=== PATIENT | male | born 1945 | race American Indian/Alaskan Native ===

== ENCOUNTER 2017-06-16 19:17 | Emergency (ER) | payer MEDICARE ==
[2017-06-16 19:44] VITALS: BP 152/97
== END 2017-06-16 21:50 | disposition left against medical advice (07) ==
LOC: ED 19:17
DX: R10.9 Unspecified abdominal pain (principal); Z53.21 Procedure and treatment not carried out due to patient leaving prior to being seen by health care provider

== ENCOUNTER 2018-07-16 16:01 | Emergency (ER) | payer MEDICARE ==
[2018-07-16 16:08] VITALS: BP 120/78
[2018-07-16] MEDS ORDERED: SOLU-Medrol IV ONE (18:17)
[2018-07-16] MEDS ORDERED: PROVENTIL IH ONE (18:17)
[2018-07-16] MEDS ORDERED: ATROVENT IH ONE (18:17)
--- NOTE | 2018-07-16 18:19 | Emergency Department Report ---
HPI - General Chief Complaint: Upper Respiratory Infection Time Seen by Provider: 07/16/18 16:54 - HPI HPI: 72-year-old -Congol[place] male presents to the emergency department with complaint of acute on chronic shortness of breath. Over the past few weeks the patient has developed shortness of breath, wheezing, a productive cough with whitish brown sputum. He denies any fever, chest pain, nausea, vomiting or diaphoresis. He also says that he has lost about 25 pounds over the past 8-9 months without trying. He has a past medical history of COPD/emphysema, as well as hypertension. He continues to be a tobacco smoker but denies any illicit dr ug use. He has been using some of his 's home oxygen and her inhalers without any relief. He does not have a primary care physician. His it teacher is Dr. Wolf. No recent travel or sick contacts at home. ED Past Medical Hx - Past Medical History Hx Hypertension: Yes Hx COPD: Yes - Surgical History Past Surgical History?: No - Social History Smoking Status: Current Every Day Smoker Substance Use Type: None - Medications Home Medications: Home Medications Medication Instructions Recorded Confirmed Last Taken Type Doxycycline [Vibramycin CAP] 100 mg PO BID #14 capsule 09/15/13 Unknown Rx Acetaminophen/Codeine [Tylenol #3] 1 tab PO Q8H PRN #21 tab 08/19/14 Unknown Rx Ibuprofen [Motrin 600 MG tab] 600 mg PO Q8H #30 tablet 08/19/14 Unknown Rx ALBUTEROL Inhaler (OR & NICU) 2 puff IH QID PRN #1 inhalation 07/16/18 Unknown Rx [ProAir HFA Inhaler] predniSONE [Deltasone] 50 mg PO QDAY #5 tab 07/16/18 Unknown Rx ED Review of Systems ROS: Stated complaint: GELY/CONGESTION Other details as noted in HPI Comment: All other systems reviewed and negative Constitutional: denies: chills, fever Eyes: denies: eye pain, vision change ENT: denies: ear pain, throat pain Respiratory: cough, shortness of breath, wheezing Cardiovascular: denies: palpitations, edema Endocrine: unexplained weight loss Gastrointestinal: denies: abdominal pain, vomiting Genitourinary: denies: dysuria, discharge Musculoskeletal: denies: back pain, arthralgia Skin: denies: rash, lesions Neurological: denies: headache, weakness Physical Exam - Physical Exam Vital Signs: Vital Signs 07/16/18 16:06 Temperature 98.1 F Pulse Rate 99 H Respiratory 17 Rate Blood Pressure 120/78 O2 Sat by Pulse 98 Oximetry Physical Exam: GENERAL: The patient is well-developed well-nourished. HEENT: Normocephalic. Atraumatic. Patient has moist mucous membranes. EYES: Extraocular motions are intact. Pupils are equal and reactive to light bilaterally. NECK: Supple. Trachea is midline. CHEST/LUNGS: Mild wheezing heard. No tachypnea or accessory muscle use. Occasional productive cough heard during examination. There is no respiratory distress noted. HEART/CARDIOVASCULAR: Regular. There is no tachycardia. There is no obvious murmur. ABDOMEN: Abdomen is soft, nontender. Patient has normal bowel sounds. There is no abdominal distention. SKIN: Skin is warm and dry. NEURO: The patient is awake, alert, and oriented. The patient is cooperative. The patient has no focal neurologic deficits. The patient has normal speech. MUSCULOSKELETAL: There is no tenderness or deformity. There is no evidence of acute injury. ED Course Vital Signs 07/16/18 16:06 Temperature 98.1 F Pulse Rate 99 H Respiratory 17 Rate Blood Pressure 120/78 O2 Sat by Pulse 98 Oximetry ED Medical Decision Making - Lab Data Result diagrams: 07/16/18 18:25 07/16/18 18:25 - EKG Data -: EKG Interpreted by Me EKG shows normal: sinus rhythm (sinus arrhythmia), axis, intervals, QRS comple xes (Q waves to the septal leads), ST-T waves (J-point elevation to the septal leads) Rate: normal - EKG Data When compared to previous EKG there are: previous EKG unavailable Interpretation: other (sinus arrhythmia, normal axis, normal intervals, Q waves to the septal leads with J-point elevation) - Radiology Data Radiology results: image reviewed interpreted by me: Chest x-ray does not show any pneumothorax, pleural effusion, pneumonia or obvious focal consolidation. - Medical Decision Making This patient presents with a complaint of some shortness of breath, wheezing and coughing has been going on for the past few weeks. On examination he has some mild wheezing and/or bronchospasm. He does not appear to be in any respiratory distress. A chest x-ray was done that does not show any pneumonia, pneumothorax, focal consolidation, effusions or any other acute process. His la bs have been unremarkable including a CBC, metabolic panel, d-dimer and troponin. He was given a nebulizer treatment and Solu-Medrol. The patient was reevaluated multiple times of multiple hours in both appears and feels improved. He will be discharged home with a 5 day course of steroids, and albuterol inhaler, and some referrals for primary care physicians and/or clinics in the area. He has been instructed to return to the emergency Department with any worsening of his symptoms or any acute distress. - Differential Diagnosis asthma, COPD, pneumonia, PE Critical Care Time: No Critical care attestation.: If time is entered above; I have spent that time in minutes in the direct care of this critically ill patient, excluding procedure time. ED Disposition Clinical Impression: COPD exacerbation, Tobacco use Disposition: TO HOME OR SELFCARE Is pt being admited?: No Condition: Stable Instructions: How to Stop Smoking (ED), Chronic Obstructive Pulmonary Disease (ED) Additional Instructions: Please follow up with a primary care physician in the next few days. Return to the emergency Department with any worsening of your symptoms or any acute distress. Please try and quit smoking. Prescriptions: predniSONE [Deltasone] 50 mg PO QDAY #5 tab ALBUTEROL Inhaler (OR & NICU) [ProAir HFA Inhaler] 2 puff IH QID PRN #1 inhalation PRN Reason: Shortness Of Breath Referrals: GALI HOLGUIN MD [Staff Physician] - 3-5 Days [facility] [Outside] - 3-5 Days Time of Disposition: 20:13
--- NOTE | 2018-07-16 18:21 | XRay Report ---
PROCEDURE: XR CHEST 1V AP TECHNIQUE: Single AP chest HISTORY: couugh COMPARISONS: FINDINGS: Cardiac and mediastinal contours are unremarkable. No focal pulmonary infiltrate identified. No pleur al fluid collection seen. Pulmonary vasculature is unremarkable. IMPRESSION: Negative single view chest. This document is electronically signed by Manolo Powers MD., July 16 2018 06:19:39 PM ET
[2018-07-16 18:45] LABS: Basophils # (Auto) 0.1 K/mm3 (0.0-0.1); Basophils % (Auto) 0.8 % (0.0-1.8); Eosinophils # (Auto) 0.3 K/mm3 (0.0-0.4); Eosinophils % (Auto) 2.4 % (0.0-4.3); Hematocrit 45.2 % (35.5-45.6); Hemoglobin 15.1 gm/dl (11.8-15.2); Lymphocytes # (Auto) 1.3 K/mm3 (1.2-5.4); Lymphocytes % (Auto) 11.6 % (13.4-35.0); Mean Corpuscular HGB Conc 33 % (32-34); Mean Corpuscular Volume 85 fl (84-94); Monocytes # (Auto) 1.2 K/mm3 (0.0-0.8); Platelet Count 251 K/mm3 (140-440); Red Blood Count 5.33 M/mm3 (3.65-5.03); Red Cell Distribution Width 13.5 % (13.2-15.2)
[2018-07-16 18:59] LABS: BUN/Creatinine Ratio 10; Blood Urea Nitrogen 10 mg/dL (9-20); Calcium 9.1 mg/dL (8.4-10.2); Hemolysis Index 7
== END 2018-07-16 20:56 | disposition home or self-care (01) ==
LOC: ED 16:01
DX: J44.1 Chronic obstructive pulmonary disease with (acute) exacerbation (principal); F17.210 Nicotine dependence, cigarettes, uncomplicated; I10 Essential (primary) hypertension
CPT/HCPCS: 36415; 71045; 80048; 84484; 85025; 85379; 93005; 93010; 94640; 96374; 99284; J2930

== ENCOUNTER 2019-09-25 13:09 | Inpatient (IN) | payer MEDICARE ==
[2019-09-25] MEDS ORDERED: FAMOTIDINE 20 MG TAB PO ONE (13:25)
[2019-09-25] MEDS ORDERED: NITROGLYCERIN 0.4 MG TAB SUBL SL PRN (13:25)
--- NOTE | 2019-09-25 13:32 | Emergency Department Report ---
ED Chest Pain HPI - General Chief Complaint: Chest Pain Stated Complaint: CJEST PAIN PUI?: No Time Seen by Provider: 09/25/19 13:19 Source: patient, EMS ( EMS documentation not available at time of chart dictation ), RN notes reviewed, old records reviewed Mode of arrival: Stretcher Limitations: No Limitations - History of Present Illness Initial Comments: Cardiology: Dr. Espino The patient is a 73-year-old gentleman with a past history of COPD. He is not known to myself previously. He presents to the ER with a complaint of central and left-sided chest pain, intermittent, with associated nausea, shortness of breath, and radiation to the left upper extremity. The patient denies headache, neck pain, abdominal pain, he is nauseous when he has the pain, denies irritative and obstructive urinary symptoms, And extremity weakness and or numbness. The patient was admitted to this hospital earlier on this month for chest pain. He had a nuclear stress test which was negative for acute findings, and seen and evaluated by cardiology. No recent erectile dysfunction medication utilization. No endorsement of cocaine, methamphetamine use. His chest pain is intermittent, and when it comes, he rates it at a 10 out of 10. Currently, has minimal discomfort at this time. He endorses compliance with his medications. He was reportedly at his outpatient controlled area checker office earlier on today, had not been seen yet by his physician, but had another episode of chest pain, and was thus emergently referred to the emergency room. Complaint: chest pain, other -: Sudden Pain Location: substernal, left chest Pain Radiation: LUE Severity: severe Severity scale (0 -10): 0 Quality: aching, heaviness, sharp Consistency: intermittent Improves With: rest Worsens With: nothing re: nausea, sense of impending doom Aspirin use within the Past 7 Days: (1) Yes - Related Data On Oral Contraceptives: No Home Medications Medication Instructions Recorded Confirmed Last Taken No Known Home Medications [No 09/25/19 09/25/19 Unknown Reported Home Medications] Allergies Allergy/AdvReac Type Severity Reaction Status Date / Time No Known Allergies Allergy Verified 07/16/18 16:02 Heart Score - HEART Score History: Highly suspicious EKG: Non-specific Age: > 65 Risk factors: 1-2 risk factors Troponin: < normal limit HEART Score: 6 - Critical Actions Critical Actions: 4-6 pts:12-16.6% risk of adverse cardiac event. Should be admitted ED Review of Systems ROS: Stated complaint: CJEST PAIN Other details as noted in HPI Constitutional: diaphoresis. denies: fever, malaise Eyes: denies: eye discharge Respiratory: shortness of breath. denies: cough Cardiovascular: chest pain Gastrointestinal: nausea. denies: hematemesis, melena, hematochezia Genitourinary: denies: dysuria Musculoskeletal: denies: back pain Skin: denies: lesions Neurological: denies: weakness Psychiatric: denies: depression Hematological/Lymphatic: denies: easy bleeding ED Past Medical Hx - Past Medical History Previous Medical History?: Yes Hx Hypertension: Yes Hx COPD: Yes (emphysema) - Surgical History Past Surgical History?: No - Social History Smoking Status: Current Every Day Smoker Substance Use Type: None - Medications Home Medications: Home Medications Medication Instructions Recorded Confirmed Last Taken Type No Known Home Medications [No 09/25/19 09/25/19 Unknown History Reported Home Medications] ED Physical Exam - General Limitations: No Limitations General appearance: alert, anxious - Head Head exam: Present: atraumatic, normocephalic - Eye Eye exam: Present: normal appearance, EOMI. Absent: nystagmus - ENT ENT exam: Present: normal exam, normal orophraynx, mucous membranes moist, normal external ear exam - Neck Neck exam: Present: normal inspection, full ROM. Absent: tenderness, meningismus - Respiratory Respiratory exam: Present: decreased breath sounds. Absent: respiratory distress, wheezes, rales, rhonchi, stridor - Cardiovascular Cardiovascular Exam: Present: regular rate, normal rhythm. Absent: bradycardia, tachycardia, irregular rhythm, normal heart sounds, systolic murmur, diastolic murmur, rubs, gallop - GI/Abdominal GI/Abdominal exam: Present: soft. Absent: distended, tenderness, guarding, rebound, rigid, pulsatile mass - Rectal Rectal exam: Present: deferred - Extremities Exam Extremities exam: Present: normal inspection, full ROM, other (2+ pulses noted in the bilateral upper and lower extremities. There is no palpable cord. negative Homans sign. Muscular compartments are soft. The pelvis is stable.). Absent: pedal edema, calf tenderness - Back Exam Back exam: Present: normal inspection, full ROM. Absent: tenderness, CVA tenderness (R), CVA tenderness (L), paraspinal tenderness, vertebral tenderness - Neurological Exam Neurological exam: Present: alert, other (No facial droop. Tongue midline. Extraocular movements intact bilaterally. Facial sensation intact to light touch in V1, V2, V3 distribution bilaterally. 5 and a 5 strength in 4 ext remities. Sensation intact to light touch in 4 extremities.). Absent: motor sensory deficit - Psychiatric Psychiatric exam: Present: anxious - Skin Skin exam: Present: warm, dry, intact, normal color. Absent: rash ED Course Vital Signs 09/25/19 09/25/19 09/25/19 13:11 13:16 13:24 Temperature 97.9 F Pulse Rate 66 59 L Respiratory 22 20 20 Rate Blood Pressure 122/83 O2 Sat by Pulse 99 99 Oximetry 09/25/19 09/25/19 09/25/19 13:30 13:45 14:00 Temperature Pulse Rate 69 68 61 Respiratory 18 16 15 Rate Blood Pressure 114/75 108/83 133/83 O2 Sat by Pulse 97 97 99 Oximetry 09/25/19 09/25/19 09/25/19 14:15 14:30 14:45 Temperature Pulse Rate 54 L 58 L 57 L Respiratory 18 18 14 Rate Blood Pressure 136/82 134/87 138/80 O2 Sat by Pulse 98 99 95 Oximetry 09/25/19 09/25/19 09/25/19 15:00 15:15 15:30 Temperature Pulse Rate 58 L 64 57 L Respiratory 21 16 17 Rate Blood Pressure 142/93 148/94 135/82 O2 Sat by Pulse 98 100 Oximetry 09/25/19 09/25/19 09/25/19 15:45 16:00 16:15 Temperature Pulse Rate 58 L 62 61 Respiratory 14 15 15 Rate Blood Pressure 135/81 134/86 133/79 O2 Sat by Pulse 100 99 97 Oximetry 09/25/19 09/25/19 09/25/19 16:30 16:45 17:00 Temperature Pulse Rate 72 59 L 62 Respiratory 14 21 16 Rate Blood Pressure 129/83 139/83 136/80 O2 Sat by Pulse 98 98 Oximetry 09/25/19 09/25/19 09/25/19 17:15 17:30 17:45 Temperature Pulse Rate 60 61 59 L Respiratory 25 H 19 15 Rate Blood Pressure 131/82 142/84 134/81 O2 Sat by Pulse 98 97 99 Oximetry 09/25/19 09/25/19 18:00 18:10 Temperature Pulse Rate Respiratory Rate Blood Pressure 144/85 144/85 O2 Sat by Pulse 79 L 98 Oximetry - Reevaluation(s) Reevaluation #1: 09/25/19 14:27 Hospital physician, Dr. Rubio, to admit patient to the medical service. Patient remains pain-free at this time. STACEY score - Stacey Score Age > 65: (1) Yes Aspirin use within the Past 7 Days: (1) Yes 3 or more CAD Risk Factors: (0) No 2 or more Angina events in past 24 hrs: (1) Yes Known CAD with more than 50% Stenosis: (0) No Elevated Cardiac Markers: (0) No ST Deviation Greater than 0.5mm: (0) No STACEY Score: 3 ED Medical Decision Making - Lab Data Result diagrams: 09/27/19 04:31 09/27/19 04:31 Vital Signs 09/25/19 09/25/19 09/25/19 13:11 13:16 13:24 Temperature 97.9 F Pulse Rate 66 59 L Respiratory 22 20 20 Rate Blood Pressure 122/83 O2 Sat by Pulse 99 99 Oximetry Lab Results 09/25/19 09/25/19 09/25/19 Range/Units 14:02 14:02 14:02 WBC 9.3 (4.5-11.0) K/mm3 RBC 5.48 H (3.65-5.03) M/mm3 Hgb 15.4 H (11.8-15.2) gm/dl Hct 47.5 H (35.5-45.6) % MCV 87 (84-94) fl MCH 28 (28-32) pg MCHC 33 (32-34) % RDW 13.6 (13.2-15.2) % Plt Count 210 (140-440) K/mm3 Lymph % (Auto) 11.1 L (13.4-35.0) % [place] % (Auto) 9.3 H (0.0-7.3) % Eos % (Auto) 3.6 (0.0-4.3) % Baso % (Auto) 0.9 (0.0-1.8) % Lymph # 1.0 L (1.2-5.4) K/mm3 [place] # 0.9 H (0.0-0.8) K/mm3 Eos # 0.3 (0.0-0.4) K/mm3 Baso # 0.1 (0.0-0.1) K/mm3 Seg Neutrophils % 75.1 H (40.0-70.0) % Seg Neutrophils # 7.0 (1.8-7.7) K/mm3 PT 12.8 (12.2-14.9) Sec. INR 0.95 (0.87-1.13) APTT 24.7 (24.2-36.6) Sec. Sodium 140 (137-145) mmol/L Potassium 4.8 (3.6-5.0) mmol/L Chloride 104.4 (98-107) mmol/L Carbon Dioxide 23 (22-30) mmol/L Anion Gap 17 mmol/L BUN 10 (9-20) mg/dL Creatinine 0.9 (0.8-1.5) mg/dL Estimated GFR > 60 ml/min BUN/Creatinine Ratio 11 % Glucose 94 (75-100) mg/dL Calcium 9.4 (8.4-10.2) mg/dL Troponin T < 0.010 (0.00-0.029) ng/mL - EKG Data -: EKG Interpreted by Sd EKG shows normal: sinus rhythm - EKG Data 09/25/19 13:32 The EKG today shows a sinus rhythm, with a normal axis, intervals appear to be unremarkable, there is persistent ST elevation in V2, without reciprocal changes, however, there are new onset biphasic T wave abnormalities V3, V4, V5. This EKG is abnormal. This EKG is not a STEMI. The EKG was also transmitted to our company secretary, Dr. Espino, who advises that this EKG does not meet STEMI criteria. - Radiology Data Radiology results: pending, report reviewed, image reviewed X-ray of the chest is negative for acute disease. - Medical Decision Making Differential diagnosis, including but not limited to: Unstable angina, acute coronary syndrome Assessment and plan: 73-year-old gentleman with a historically concerning chest pain, EKG changes. He is not having active pain at this time. His EKG was transmitted to his personal controlled area checker, Dr.C Espino, who also advises that the EKG does not meet criteria for emergency activation of the cardiac catheterization lab. However, his clinical history is very concerning for unstable angina. He has minimal pain at this time. Heparinization is recommended by the cardiology team, they advised that we withhold Plavix at this time. He will be admitted to the medical service for optimization, anticipate nothing by mouth after midnight, plan for cardiac catheterization tomorrow. Critical Care Time: Yes Critical care time in (mins) excluding proc time.: 35 Critical care attestation.: If time is entered above; I have spent that time in minutes in the direct care of this critically ill patient, excluding procedure time. ED Disposition Clinical Impression: Unstable angina, Acute electrocardiogram changes Disposition: OP ADMIT IP TO THIS HOSP Is pt being admited?: Yes Does the pt Need Aspirin: Yes Condition: Serious
[2019-09-25] MEDS ORDERED: HEPARIN 10,000 UNITS/10 ML VIAL IV ONE (13:35)
--- NOTE | 2019-09-25 13:42 | Consultation ---
History of Present Illness Consult date: 09/25/19 Consult reason: chest pain History of present illness: 73-yr old male with a history of hypertension, COPD and tobacco abuse. No cardiac history. Patient was recently hospitalized with atypical chest pain. A stress thallium test showed no ischemia and an echocardiogram showed a normal left ventricular systolic function. Today, patient went to our office for a routine visit following recent hospitalization. While in the office, patient complained of mid-sternal chest pain associated with left arm pain. An ECG done showed sinus rhythm with prominent Twave. His blood pressure remained stable. EMS was called and the patient was brought in for evaluation. Medications and Allergies Allergies Allergy/AdvReac Type Severity Reaction Status Date / Time No Known Allergies Allergy Verified 07/16/18 16:02 Home Medications Medication Instructions Recorded Confirmed Last Taken Type Aspirin EC [Halfprin EC] 81 mg PO QDAY #30 tablet. 09/16/19 Unknown Rx Nicotine [Habitrol] 14 mg TD DAILY #30 patch 09/16/19 Unknown Rx Pantoprazole [Protonix] 40 mg PO QDAY #30 tablet 09/16/19 Unknown Rx Active Meds: Active Medications Heparin Sodium/Sodium Chloride (Heparin/ 0.45% Nacl-25,000 Unit/500 Ml) 25,000 unit in 500 mls @ 16.47 mls/hr IV TITRATE DIANE; Protocol Nitroglycerin (Nitrostat) 0.4 mg SL .Q5MIN PRN PRN Reason: Chest Pain Physical Examination Vital Signs Temp Pulse Resp BP Pulse Ox 97.9 F 66 22 122/83 99 09/25/19 13:11 09/25/19 13:11 09/25/19 13:11 09/25/19 13:11 09/25/19 13:11 General appearance: no acute distress HEENT: Positive: PERRL Neck: Positive: trachea midline Cardiac: Positive: Reg Rate and Rhythm Assessment and Plan - Patient Problems (1) Acute electrocardiogram changes Status: Acute Plan to address problem: Start intravenous heparin gtt, nitrates, aspirin and metoprolol for chest pain. We will plan for a cardiac cath tomorrow morning. (2) Chest pain Status: Acute
[2019-09-25] MEDS ORDERED: METOPROLOL TARTRATE 25 MG TAB PO SCH (14:00)
[2019-09-25] MEDS ORDERED: HEPARIN/ 0.45% NACL DRIP 25,000 UNIT/500 ML BAG IV SCH (14:00)
--- NOTE | 2019-09-25 14:18 | XRay Report ---
CHEST 1 VIEW INDICATION / CLINICAL INFORMATION: Chest pain for 3 weeks. COMPARISON: 09/15/2019 FINDINGS: SUPPORT DEVICES: None. HEART / MEDIASTINUM: No significant abnormality. LUNGS / PLEURA: No focal infiltrate is seen. No pneumothorax. There is a calcified granuloma on the right. ADDITIONAL FINDINGS: No significant additional findings. IMPRESSION: 1. No acute findings. No significant change Signer Name: Romaine Franks MD Signed: 09/25/2019 2:14 PM Workstation Name: [id number]
[2019-09-25] MEDS: ASPIRIN 325 MG TAB PO SCH (14:21)
[2019-09-25 14:29] LABS: Basophils # (Auto) 0.1 K/mm3 (0.0-0.1); Basophils % (Auto) 0.9 % (0.0-1.8); Eosinophils # (Auto) 0.3 K/mm3 (0.0-0.4); Eosinophils % (Auto) 3.6 % (0.0-4.3); Hematocrit 47.5 % (35.5-45.6); Hemoglobin 15.4 gm/dl (11.8-15.2); Lymphocytes % (Auto) 11.1 % (13.4-35.0); Mean Corpuscular HGB Conc 33 % (32-34); Mean Corpuscular Volume 87 fl (84-94); Monocytes # (Auto) 0.9 K/mm3 (0.0-0.8); Monocytes % (Auto) 9.3 % (0.0-7.3); Platelet Count 210 K/mm3 (140-440); Red Blood Count 5.48 M/mm3 (3.65-5.03); Red Cell Distribution Width 13.6 % (13.2-15.2)
[2019-09-25 14:42] LABS: INR 0.95 (0.87-1.13)
[2019-09-25 14:43] LABS: Partial Thromboplastin Time 24.7 Sec. (24.2-36.6)
[2019-09-25 14:47] LABS: BUN/Creatinine Ratio 11; Blood Urea Nitrogen 10 mg/dL (9-20); Calcium 9.4 mg/dL (8.4-10.2); Hemolysis Index 62
[2019-09-25] MEDS ORDERED: ONDANSETRON 4 MG/2 ML INJ IV PRN (15:06)
--- NOTE | 2019-09-25 15:08 | History and Physical Report ---
History of Present Illness Chief complaint: My chest keeps hurting History of present illness: 73 YO Male with Nicotine Dependence,COPD, HTN, Malnutrition presents to ED for evaluation. Patient states that he has experienced pain in his chest over the past 2 weeks with acute acute onset of worsening pain in his chest over the past 1 day. Patient states that his pain began this morning shortly after awakening from sleep. Patient states that pain is 10 out of 10, substernal, radiates to the left chest, sharp, aching in nature, feels like a heaviness on his chest, associated with shortness of breath. Patient acknowledges shortness of breath, decreased exercise tolerance, dyspnea on exertion, as well as dyspnea at rest. EMS notified and upon arrival the patient was found to be in distress and subsequently transported to [facility] for further care and evaluation. Patient seen and evaluated in the emergency department. Lab and imaging studies reviewed. Patient found to have clinical findings consistent with unstable angina, diastolic CHF. Cardiology team consulted in the emergency department. Patient initiated on a heparin drip as well as chest pain protocol and admitted to telemetry service. Patient denies fever, chills, palpitations, productive cough, skin rash, recent ill contacts, prolonged travel/immobility, individual/family history of DVT/PE/bleeding/blood clotting disorders, or known exposure to COVID-19. Prior admission on 09/15/2019 reviewed. All medication listed at time of admission have been reconciled. Advanced care planning conducted in ED. Past History Past Medical History: diabetes, hypertension, other (See HPI) Past Surgical History: No surgical history, Other (Reviewed) Social history: , lives with family, smoking Family history: diabetes, hypertension Medications and Allergies Allergies Allergy/AdvReac Type Severity Reaction Status Date / Time No Known Allergies Allergy Verified 07/16/18 16:02 Home Medications Medication Instructions Recorded Confirmed Last Taken Type No Known Home Medications [No 09/25/19 09/25/19 Unknown History Reported Home Medications] Active Meds: Active Medications Acetaminophen (Tylenol) 650 mg PO Q4H PRN PRN Reason: Pain MILD(1-3)/Fever >100.5/[place] Aspirin (Aspirin) 325 mg PO QDAY [facility] Last Admin: 09/25/19 14:21 Dose: Not Given Documented by: Aspirin (Halfprin Ec) 81 mg PO QDAY [facility] Atorvastatin Calcium (Lipitor) 40 mg PO QHS [facility] Heparin Sodium/Sodium Chloride (Heparin/ 0.45% Nacl-25,000 Unit/500 Ml) 25,000 unit in 500 mls @ 15 mls/hr IV TITRATE [facility]; Protocol Last Admin: 09/25/19 14:07 Dose: 750 units/hr, 15 mls/hr Documented by: Metoprolol Tartrate (Metoprolol) 25 mg PO BID [facility] Nitroglycerin (Nitrostat) 0.4 mg SL .Q5MIN PRN PRN Reason: Chest Pain Nitroglycerin (Nitro-Bid 2%) 1 inch TP Q6HR [facility]; Protocol Ondansetron HCl (Zofran) 4 mg IV Q8H PRN PRN Reason: Nausea And Vomiting Sodium Chloride (Sodium Chloride Flush Syringe 10 Ml) 10 ml IV BID [facility] Sodium Chloride (Sodium Chloride Flush Syringe 10 Ml) 10 ml IV PRN PRN PRN Reason: LINE FLUSH Review of Systems Constitutional: no weight loss, no weight gain, no fever, no chills, no sweats Ears, nose, mouth and throat: no ear pain, no ear discharge, no tinnitis, no decreased hearing, no nose pain Cardiovascular: chest pain, dyspnea on exertion, decreased exercise tolerance, no palpitations, no rapid/irregular heart beat, no edema Respiratory: no cough, no cough with sputum, no excessive sputum, no hemoptysis, no dyspnea on exertion Gastrointestinal: no nausea, no vomiting, no diarrhea, no constipation, no hematemesis Genitourinary Male: no hematuria, no flank pain, no urinary frequency Rectal: no pain Musculoskeletal: no neck stiffness, no neck pain, no shooting arm pain, no low back pain, no shooting leg pain Integumentary: no rash, no redness, no sores, no jaundice Neurological: no head injury, no transient paralysis, no weakness, no parathesias, no numbness Psychiatric: no change in sleep habits, no insomnia, no change in libido, no suicidal ideation, no hallucinations Endocrine: no cold intolerance, no heat intolerance, no polyphagia, no polydipsia, no nocturia, no flushing, no weight change Hematologic/Lymphatic: no easy bruising, no easy bleeding, no lymphadenopathy, no lymphedema Allergic/Immunologic: no urticaria, no allergic rhinitis, no persistent infections, no anaphylaxis Exam - Constitutional Vitals: Temp Pulse Resp BP Pulse Ox 97.9 F 54 L 18 136/82 98 09/25/19 13:11 09/25/19 14:15 09/25/19 14:15 09/25/19 14:15 09/25/19 14:15 General appearance: Present: mild distress, cachectic - EENT Eyes: Present: PERRL ENT: hearing intact, clear oral mucosa - Neck Neck: Present: supple, normal ROM - Respiratory Respiratory effort: normal Respiratory: bilateral: CTA - Cardiovascular Heart Sounds: Present: S1 & S2. Absent: rub, click - Extremities Extremities: pulses symmetrical, No edema Peripheral Pulses: within normal limits - Abdominal General gastrointestinal: Present: soft, non-tender, non-distended, normal bowel sounds Male genitourinary: Present: normal - Integumentary Integumentary: Present: clear, warm, dry - Musculoskeletal Musculoskeletal: gait normal, strength equal bilaterally - Psychiatric Psychiatric: appropriate mood/affect, intact judgment & insight - Neurologic Neurologic: CNII-XII intact, moves all extremities HEART Score - HEART Score EKG: Non-specific Age: > 65 Risk factors: 1-2 risk factors Troponin: Troponin T < 0.010 ng/mL (0.00-0.029) 09/25/19 14:02 Troponin: < normal limit - Critical Actions Critical Actions: 4-6 pts:12-16.6% risk of adverse cardiac event. Should be admitted Results - Labs CBC & Chem 7: 09/25/19 14:02 09/25/19 14:02 Labs: Abnormal lab results 09/25/19 Range/Units 14:02 RBC 5.48 H (3.65-5.03) M/mm3 Hgb 15.4 H (11.8-15.2) gm/dl Hct 47.5 H (35.5-45.6) % Lymph % (Auto) 11.1 L (13.4-35.0) % [place] % (Auto) 9.3 H (0.0-7.3) % Lymph # 1.0 L (1.2-5.4) K/mm3 [place] # 0.9 H (0.0-0.8) K/mm3 Seg Neutrophils % 75.1 H (40.0-70.0) % Assessment and Plan - Patient Problems (1) Diastolic CHF Current Visit: Yes Status: Acute Qualifiers: Heart failure chronicity: acute Qualified Code(s): I50.31 - Acute diastolic (congestive) heart failure Plan to address problem: Strict I's/O, monitor urine output every shift, daily weight, echocardiogram reviewed, afterload reduction, blood pressure control, submental oxygen, supportive care. (2) Unstable angina Current Visit: Yes Status: Acute Plan to address problem: Cardiology consulted in ED, heparin drip, cardiac catheterization in a.m. as per cardiology team, serial cardiac enzymes, EKG, supplemental oxygen, morphine, nitro tabs, aspirin, supportive care, risk factor reduction, smoking cessation. (3) Malnutrition Current Visit: Yes Status: Acute Qualifiers: Protein-calorie malnutrition severity: moderate Plan to address problem: Encourage increased protein intake, dietary supplementation. (4) Nicotine dependence unspecified, with withdrawal Current Visit: Yes Status: Acute Qualifiers: Nicotine product type: cigarettes Qualified Code(s): F17.213 - Nicotine dependence, cigarettes, with withdrawal Plan to address problem: Smoking cessation counseling, supportive care, behavior change counseling, +15 minutes. (5) DVT prophylaxis Current Visit: No Status: Acute Plan to address problem: SCD to bilateral lower extremities while in bed, continue heparin drip. (6) Advance care planning Current Visit: Yes Status: Acute Plan to address problem: Disease education conducted, patient is full code, patient knowledges understanding and agreement with care plan, +30 minutes.
[2019-09-25] MEDS: NITROGLYCERIN 2% OINT 1 GM TP SCH (20:08)
[2019-09-25] MEDS: METOPROLOL TARTRATE 25 MG TAB PO SCH (22:28)
[2019-09-25] MEDS: ACETAMINOPHEN 325 MG TAB PO PRN (23:48)
[2019-09-26] MEDS: NITROGLYCERIN 2% OINT 1 GM TP SCH ×2 (00:15→06:11)
[2019-09-26 06:13] LABS: BUN/Creatinine Ratio 13; Blood Urea Nitrogen 10 mg/dL (9-20); Calcium 8.7 mg/dL (8.4-10.2); Hemolysis Index 12
[2019-09-26 06:22] LABS: INR 1.13 (0.87-1.13)
[2019-09-26] MEDS ORDERED: SODIUM CHLORIDE 0.9% 500 ML 500 ML ONE (07:17)
[2019-09-26] MEDS ORDERED: ASPIRIN EC 81 MG TAB PO ONE (07:17)
[2019-09-26] MEDS ORDERED: HEPARIN/NS 5000 UNIT/500ML 1,000 ML IR ONE (08:07)
[2019-09-26] MEDS ORDERED: VERAPAMIL 5 MG/2 ML INJ ONE ×2 (08:08→09:28)
[2019-09-26] MEDS ORDERED: NITROGLYCERIN SYRINGE 3 ML ONE (08:08)
[2019-09-26] MEDS: LIDOCAINE (2%) 20 MG/1 ML VIAL 20 ML MDV INFILTRATI ONE ×3 (08:43→08:58)
[2019-09-26] MEDS: MIDAZOLAM 2 MG/2 ML INJ ONE ×3 (08:43→09:11)
[2019-09-26] MEDS: fentaNYL 100 MCG/2 ML INJ ONE ×3 (08:43→09:06)
[2019-09-26] MEDS: HEPARIN 10,000 UNITS/10 ML VIAL ONE ×2 (09:07→09:15)
[2019-09-26] MEDS ORDERED: NITROGLYCERIN 0.4 MG TAB SUBL SL ONE (09:10)
[2019-09-26] MEDS ORDERED: TICAGRELOR 90 MG TAB ONE (09:47)
[2019-09-26] MEDS ORDERED: ALUM-MAG HYDROXIDE-SIMETHICONE 200-200-20MG/5ML ORAL LIQD 30 ML ONE (09:48)
[2019-09-26] MEDS ORDERED: ASPIRIN EC 81 MG TAB PO SCH (10:00)
--- NOTE | 2019-09-26 10:01 | Cardiac Catherization Report ---
CARDIAC CATHETERIZATION AND CORONARY ANGIOPLASTY REPORT REASON FOR PROCEDURE: The patient is a 73-year-old man who presented to the hospital with acute coronary syndrome, manifested by chest pain and biphasic T-wave changes in the anterior leads. He was treated with aggressive anti-ischemic medical therapy and referred for cardiac catheterization in an early invasive strategy. DESCRIPTION OF PROCEDURE: The patient was prepped and draped in a sterile fashion after informed consent. Right femoral artery was entered using Seldinger technique followed by placement of a 6-[place] sheath. Selective left and right coronary angiography was performed using #4 right and left Debby catheters. The right Debby was used for left ventricular angiography. The angiograms were reviewed. HEMODYNAMICS: Left ventricular end-diastolic pressure was 7. Ascending aortic pressure was 160/95. There was no significant pressure gradient on pullback across the aortic valve. CORONARY ANGIOGRAPHY: The left main coronary artery was free of significant disease. The left anterior descending artery contained a long, ulcerated, 95% stenosis of its proximal segment, associated with delayed STACEY 2 antegrade flow. The circumflex artery contained mild luminal irregularities. The right coronary artery was dominant and similarly contained mild luminal irregularities. Left ventricle was moderately to severely dilated, with severe left ventricular systolic dysfunction, ejection fraction 20-25%. CORONARY ANGIOPLASTY: Ad-hoc coronary intervention to the proximal LAD was performed. We exchanged for a #3.5 XB guiding catheter and advanced to the left coronary ostium. A 0.014 inch Whisper wire was successfully transitioned across the lesional segment in the very tortuous proximal LAD. Following wire placement, predilatation balloon angioplasty was performed using a #3.0 mm balloon catheter. We then deployed a 3.5 x 18 mm Resolute drug-eluting stent, covering the entire lesional segment. Following stent deployment, post-dilatation balloon angioplasty was successfully performed with an excellent angiographic result at the primary lesion and zero residual stenosis. At the conclusion, STACEY 3 flow was restored in the LAD. Procedure was well tolerated by the patient and there were no complications. The catheters and the wires were removed, sheath removed, and hemostasis achieved using an Angio-Seal device. The patient was returned to the post-procedure unit in stable condition. CONCLUSIONS: 1. Single vessel coronary artery disease with an ulcerated, greater than 95% stenosis of the proximal left anterior descending. 2. Ischemic cardiomyopathy, left ventricular ejection fraction 20-25%. 3. Successful angioplasty and stenting of the LAD stenosis, with deployment of a 3.5 mm drug-eluting stent, postdilated to a 4.4 mm diameter. 4. Sedation time, start 0856, end 0940. JOB# [id number] CA/NTS
--- NOTE | 2019-09-26 10:04 | Event Note ---
Date: 09/26/19 Cardiac cath completed with successful PCI of prox LAD. No complications.
[2019-09-26] MEDS ORDERED: SODIUM CHLORIDE 0.9% 1000 ML 1,000 ML IV SCH (10:15)
[2019-09-26] MEDS: ACETAMINOPHEN 325 MG TAB PO PRN (12:55)
--- NOTE | 2019-09-26 14:09 | Progress Note ---
Assessment and Plan Unstable angina due to coronary artery disease - s/p Cardiac cath completed with successful PCI of prox LAD this am - s/p heparin drip, now placed on aspirin Brilinta, high-dose statin and beta- aysha -We will follow further cardiology recommendations Diabetes mellitus type 2, continue consistent carb diet and SSI Hypertension, continue antihypertensive and adjust medications as needed Tobacco abuse, counseled for abstinence COPD, without exacerbation, nebs as needed Mild malnutrition, supplemental nutrients ordered DVT prophylaxis, Lovenox Brief history: 73-year-old male with a history of nicotine dependence, COPD, hypertension, malnutrition presented to the ER with complaints of chest pain. His cardiac enzymes in the ER was normal, he had a recent hospitalization and a stress test that time did not show any reversible ischemia. EKG showed prominent T waves, cardiology was consulted and and patient was placed on heparin drip. Status post cardiac cath today with PCI to proximal LAD. Physical exam: GENERAL: well-developed elderly -[place] male lying on bed appeared to be in no discomfort. HEENT: Normocephalic. Atraumatic. No conjunctival congestion or icterus. Patient has moist mucous membranes. NECK: Supple. Trachea midline. CHEST/LUNGS: Clear to auscultated bilaterally, breathing nonlabored. No wheezes crackles or rhonchi. HEART/CARDIOVASCULAR: Regular in rate and rhythm. S1 and S2 positive. ABDOMEN: Abdomen is soft, nontender. Patient has normal bowel sounds. SKIN: There is no rash. Warm and dry. NEURO: No focal motor deficit. Follows command. MUSCULOSKELETAL: No joint effusion or tenderness. EXTRIMITY: No edema, no cyanosis or clubbing. PSYCH: Cooperative. Subjective Date of service: 09/26/19 Interval history: Patient seen and examined. Medical records and medication list reviewed. No acute event overnight noted by the RN. Patient denies any chest pain or difficulty breathing. Status post cardiac cath today with PCI Discussed plan of care at bedside with patient. Objective - Constitutional Vitals: Vital Signs - 12hr 09/26/19 09/26/19 09/26/19 02:39 05:01 08:50 Temperature 97.8 F Pulse Rate 67 58 L Respiratory 20 Rate Blood Pressure 146/86 O2 Sat by Pulse 98 95 Oximetry 09/26/19 09/26/19 09/26/19 11:39 12:07 12:10 Temperature 97.5 F L Pulse Rate 58 L 62 Respiratory 18 Rate Blood Pressure 137/91 138/103 O2 Sat by Pulse 95 97 Oximetry 09/26/19 09/26/19 13:06 13:34 Temperature Pulse Rate 62 Respiratory Rate Blood Pressure 143/90 143/90 O2 Sat by Pulse Oximetry - Labs CBC & Chem 7: 09/27/19 04:31 09/27/19 04:31 Labs: Abnormal lab results 09/25/19 09/25/19 09/25/19 Range/Units 14:02 18:04 23:04 RBC 5.48 H (3.65-5.03) M/mm3 Hgb 15.4 H (11.8-15.2) gm/dl Hct 47.5 H (35.5-45.6) % Lymph % (Auto) 11.1 L (13.4-35.0) % [place] % (Auto) 9.3 H (0.0-7.3) % Lymph # 1.0 L (1.2-5.4) K/mm3 [place] # 0.9 H (0.0-0.8) K/mm3 Seg Neutrophils % 75.1 H (40.0-70.0) % Heparin Anti-Xa Level 0.78 H (0.3-0.7) U.I./ml POC Glucose 121 H (70-105) 09/25/19 09/26/19 09/26/19 Range/Units 23:18 02:11 04:19 RBC (3.65-5.03) M/mm3 Hgb (11.8-15.2) gm/dl Hct (35.5-45.6) % Lymph % (Auto) (13.4-35.0) % [place] % (Auto) (0.0-7.3) % Lymph # (1.2-5.4) K/mm3 [place] # (0.0-0.8) K/mm3 Seg Neutrophils % (40.0-70.0) % Heparin Anti-Xa Level 0.74 H 0.26 L (0.3-0.7) U.I./ml POC Glucose 109 H (70-105) HEART Score - HEART Score EKG: Non-specific Age: > 65 Risk factors: 1-2 risk factors Troponin: Troponin T 0.023 ng/mL (0.00-0.029) 09/25/19 18:04 Troponin: < normal limit - Critical Actions Critical Actions: 4-6 pts:12-16.6% risk of adverse cardiac event. Should be admitted
[2019-09-26] MEDS: IPRATROPIUM/ALBUTEROL SULFATE 3 ML AMPUL.NEB IH SCH ×2 (14:21→20:51)
[2019-09-26] MEDS: LISINOPRIL 5 MG TAB PO SCH (17:33)
[2019-09-26] MEDS: METOPROLOL TARTRATE 25 MG TAB PO SCH ×2 (17:33→21:32)
[2019-09-26] MEDS: ASPIRIN 325 MG TAB PO SCH (20:25)
[2019-09-26] MEDS: TICAGRELOR 90 MG TAB PO SCH (21:32)
[2019-09-26] MEDS: ENOXAPARIN 40 MG/0.4 ML INJ SUB-Q SCH (21:33)
[2019-09-27] MEDS: IPRATROPIUM/ALBUTEROL SULFATE 3 ML AMPUL.NEB IH SCH ×4 (02:02→20:49)
[2019-09-27 05:59] LABS: Basophils % (Auto) 0.4 % (0.0-1.8); Eosinophils # (Auto) 0.4 K/mm3 (0.0-0.4); Eosinophils % (Auto) 4.7 % (0.0-4.3); Hematocrit 45.1 % (35.5-45.6); Hemoglobin 14.6 gm/dl (11.8-15.2); Lymphocytes # (Auto) 1.1 K/mm3 (1.2-5.4); Lymphocytes % (Auto) 11.4 % (13.4-35.0); Mean Corpuscular HGB Conc 32 % (32-34); Mean Corpuscular Volume 87 fl (84-94); Monocytes # (Auto) 1.1 K/mm3 (0.0-0.8); Monocytes % (Auto) 11.5 % (0.0-7.3); Platelet Count 213 K/mm3 (140-440); Red Blood Count 5.19 M/mm3 (3.65-5.03); Red Cell Distribution Width 13.5 % (13.2-15.2)
[2019-09-27 06:06] LABS: Creatine Kinase MB 3.2 ng/mL (0.0-4.0)
[2019-09-27 06:09] LABS: BUN/Creatinine Ratio 15; Blood Urea Nitrogen 12 mg/dL (9-20); Calcium 8.6 mg/dL (8.4-10.2); Hemolysis Index 5
--- NOTE | 2019-09-27 09:07 | XRay Report ---
CHEST - 1 VIEW INDICATION: post pci COMPARISON: 09/25/2019 FINDINGS: SUPPORT DEVICES: None. HEART: Stable cardiomediastinal silhouette. LUNGS/PLEURA: Clear lungs. ADDITIONAL FINDINGS: None. IMPRESSION: Unchanged exam. Signer Name: Himanshu Hastings MD Signed: 09/27/2019 9:02 AM Workstation Name: [id number]
[2019-09-27] MEDS: LISINOPRIL 5 MG TAB PO SCH (09:40)
[2019-09-27] MEDS: METOPROLOL TARTRATE 25 MG TAB PO SCH ×2 (09:41→22:26)
[2019-09-27] MEDS: TICAGRELOR 90 MG TAB PO SCH ×2 (09:41→22:25)
[2019-09-27] MEDS: ASPIRIN 325 MG TAB PO SCH (09:42)
--- NOTE | 2019-09-27 10:43 | Progress Note ---
Assessment and Plan - Patient Problems (1) Unstable angina Current Visit: Yes Status: Acute Plan to address problem: Patient presented with unstable angina. EKG was biphasic anterior T waves. Cardiac catheterization demonstrated a severe stenosis of the proximal LAD, which was successfully treated with a 3.5 mm drug-eluting stent, postdilated to a 4.0 mm diameter. He is stable for cardiac discharge. Dual antiplatelet therapy with baby aspirin and Brilinta 90 mg twice daily. Continue other guideline directed medical therapy as outlined. Subjective Date of service: 09/27/19 Interval history: Patient is comfortable, looks and feels well, no further chest pain. He is in a sinus rhythm and hemodynamically stable. Objective Vital Signs Temp Pulse Pulse Resp Resp BP Pulse Ox 09/27/19 09:41 74 122/85 09/27/19 09:40 74 122/85 09/27/19 09:39 97 09/27/19 08:00 74 18 09/27/19 07:36 97.9 F 74 18 122/85 97 09/27/19 04:00 50 L 09/27/19 03:58 98.0 F 58 L 18 145/88 100 09/26/19 23:16 97.8 F 62 20 115/74 93 09/26/19 21:32 118/76 09/26/19 20:56 100 09/26/19 20:55 83 18 09/26/19 20:12 73 09/26/19 19:17 97.8 F 73 18 118/76 94 09/26/19 16:37 88 116/87 99 09/26/19 15:59 97.7 F 65 18 150/78 100 09/26/19 14:21 86 18 09/26/19 13:34 62 143/90 09/26/19 13:06 143/90 09/26/19 12:10 97.5 F L 62 18 138/103 97 09/26/19 12:07 58 L 95 09/26/19 11:39 137/91 - Physical Examination General: Appears Well, No Apparent Distress HEENT: Positive: PERRL Neck: Positive: trachea midline Cardiac: Positive: Reg Rate and Rhythm Lungs: Positive: Decreased Breath Sounds Neuro: Positive: Grossly Intact Abdomen: Positive: Soft Skin: Positive: Clear Extremities: Absent: edema - Labs and Meds Cardiac Enzymes 09/27/19 Range/Units 04:31 CK-MB (CK-2) 3.2 (0.0-4.0) ng/mL CBC 09/27/19 Range/Units 04:31 WBC 9.6 (4.5-11.0) K/mm3 RBC 5.19 H (3.65-5.03) M/mm3 Hgb 14.6 (11.8-15.2) gm/dl Hct 45.1 (35.5-45.6) % Plt Count 213 (140-440) K/mm3 Lymph # 1.1 L (1.2-5.4) K/mm3 [place] # 1.1 H (0.0-0.8) K/mm3 Eos # 0.4 (0.0-0.4) K/mm3 Baso # 0.0 (0.0-0.1) K/mm3 Comprehensive Metabolic Panel 09/27/19 Range/Units 04:31 Sodium 136 L (137-145) mmol/L Potassium 4.2 (3.6-5.0) mmol/L Chloride 100.9 (98-107) mmol/L Carbon Dioxide 25 (22-30) mmol/L BUN 12 (9-20) mg/dL Creatinine 0.8 (0.8-1.5) mg/dL Glucose 94 (75-100) mg/dL Calcium 8.6 (8.4-10.2) mg/dL
[2019-09-27] MEDS ORDERED: METOPROLOL TARTRATE 25 MG TAB PO SCH ×2 (12:07→22:00)
[2019-09-27] MEDS: ACETAMINOPHEN 325 MG TAB PO PRN ×3 (12:33→22:33)
--- NOTE | 2019-09-27 13:39 | Event Note ---
Date: 09/27/19 Patient's BP dropped to low 80s, he was started on isosorbide and lisinopril in addition to BB. will hold his BP meds now, cont to monitor.
--- NOTE | 2019-09-27 13:43 | Progress Note ---
Assessment and Plan Unstable angina due to coronary artery disease - s/p Cardiac cath completed with successful PCI of prox LAD 09/26/19 - s/p heparin drip, now placed on aspirin, Brilinta, high-dose statin and beta- aysha -We will follow further cardiology recommendations Diabetes mellitus type 2, continue consistent carb diet and SSI Hypertension, now hypotensive - placed on BB, ACI and isosorbide - BP dropped 80s - will hold BP meds for now New diagnosis of systolic CHFrEf 20-25% - cont strict ins/os, along with BB - patient appear compensated, follow cardiology recommendation Tobacco abuse, counseled for abstinence COPD, without exacerbation, nebs as needed Mild malnutrition, supplemental nutrients ordered DVT prophylaxis, Lovenox Disposition: Discharge hold today because of low blood pressure, systolic dropped to as low as 78. Will adjust antihypertensives, if clinically stable possible discharge tomorrow. Brief history: 73-year-old male with a history of nicotine dependence, COPD, hypertension, malnutrition presented to the ER with complaints of chest pain. His cardiac enzymes in the ER was normal, he had a recent hospitalization and a stress test that time did not show any reversible ischemia. EKG showed prominent T waves, cardiology was consulted and and patient was placed on heparin drip. Status post cardiac cath 09/25 with PCI to proximal LAD. Physical exam: GENERAL: well-developed elderly -[place] male lying on bed appeared to be in no discomfort. HEENT: Normocephalic. Atraumatic. No conjunctival congestion or icterus. Patient has moist mucous membranes. NECK: Supple. Trachea midline. CHEST/LUNGS: Clear to auscultated bilaterally, breathing nonlabored. No wheezes crackles or rhonchi. HEART/CARDIOVASCULAR: Regular in rate and rhythm. S1 and S2 positive. ABDOMEN: Abdomen is soft, nontender. Patient has normal bowel sounds. SKIN: There is no rash. Warm and dry. NEURO: No focal motor deficit. Follows command. MUSCULOSKELETAL: No joint effusion or tenderness. EXTRIMITY: No edema, no cyanosis or clubbing. PSYCH: Cooperative. Subjective Date of service: 09/27/19 Interval history: Patient seen and examined. Medical records and medication list reviewed. No acute event overnight noted by the RN. Patient denies any chest pain or difficulty breathing. Systolic blood pressure dropped below 80s this morning Patient complains of slight dizziness and lightheadedness Discussed plan of care at bedside with patient. Objective - Constitutional Vitals: Vital Signs - 12hr 09/27/19 09/27/19 09/27/19 03:58 04:00 07:36 Temperature 98.0 F 97.9 F Pulse Rate 58 L 50 L 74 Pulse Rate [ Bilateral Upper Lobe] Pulse Rate [ Lying] Pulse Rate [ Sitting] Pulse Rate [ Standing] Respiratory 18 18 Rate Respiratory Rate [Bilateral Upper Lobe] Blood Pressure 145/88 122/85 Blood Pressure [Lying] Blood Pressure [Sitting] Blood Pressure [Standing] O2 Sat by Pulse 100 97 Oximetry 09/27/19 09/27/19 09/27/19 08:00 09:39 09:40 Temperature Pulse Rate 74 Pulse Rate [ 74 Bilateral Upper Lobe] Pulse Rate [ Lying] Pulse Rate [ Sitting] Pulse Rate [ Standing] Respiratory Rate Respiratory 18 Rate [Bilateral Upper Lobe] Blood Pressure 122/85 Blood Pressure [Lying] Blood Pressure [Sitting] Blood Pressure [Standing] O2 Sat by Pulse 97 Oximetry 09/27/19 09/27/19 09:41 12:04 Temperature Pulse Rate 74 Pulse Rate [ Bilateral Upper Lobe] Pulse Rate [ 50 L Lying] Pulse Rate [ 74 Sitting] Pulse Rate [ 67 Standing] Respiratory Rate Respiratory Rate [Bilateral Upper Lobe] Blood Pressure 122/85 Blood Pressure 81/51 [Lying] Blood Pressure 87/49 [Sitting] Blood Pressure 75/50 [Standing] O2 Sat by Pulse Oximetry - Labs CBC & Chem 7: 09/27/19 04:31 09/27/19 04:31 Labs: Abnormal lab results 09/27/19 09/27/19 Range/Units 04:31 04:31 RBC 5.19 H (3.65-5.03) M/mm3 Lymph % (Auto) 11.4 L (13.4-35.0) % [place] % (Auto) 11.5 H (0.0-7.3) % Eos % (Auto) 4.7 H (0.0-4.3) % Lymph # 1.1 L (1.2-5.4) K/mm3 [place] # 1.1 H (0.0-0.8) K/mm3 Seg Neutrophils % 72.0 H (40.0-70.0) % Sodium 136 L (137-145) mmol/L HEART Score - HEART Score EKG: Non-specific Age: > 65 Risk factors: 1-2 risk factors Troponin: Troponin T < 0.010 ng/mL (0.00-0.029) 09/27/19 04:31 Troponin: < normal limit - Critical Actions Critical Actions: 4-6 pts:12-16.6% risk of adverse cardiac event. Should be admitted
[2019-09-27] MEDS: ENOXAPARIN 40 MG/0.4 ML INJ SUB-Q SCH (22:25)
[2019-09-27] MEDS ORDERED: CETIRIZINE 10 MG TAB PO ONE (23:00)
[2019-09-28] MEDS: IPRATROPIUM/ALBUTEROL SULFATE 3 ML AMPUL.NEB IH SCH ×3 (02:42→15:26)
[2019-09-28] MEDS ORDERED: KETOROLAC 30 MG/1 ML INJ IV ONE (06:43)
[2019-09-28] MEDS: ACETAMINOPHEN 325 MG TAB PO PRN (08:43)
[2019-09-28] MEDS ORDERED: LISINOPRIL 5 MG TAB PO SCH (10:00)
--- NOTE | 2019-09-28 11:06 | Progress Note ---
Assessment and Plan - Patient Problems (1) Unstable angina Current Visit: Yes Status: Acute Plan to address problem: Patient admitted with acute coronary syndrome, underwent cardiac catheterization with coronary stenting of a severe stenosis of the proximal LAD. Left ventricular angiography revealed an underlying ischemic cardiomyopathy. Patient is stable for discharge on medical therapy, including dual oral antiplatelet therapy with aspirin 81 mg and Brilinta 90 mg twice daily, in addition to reduced doses of his JULIEN and beta-aysha, in addition to guideline directed doses of statin. The isosorbide can be discontinued due to concerns regarding low blood pressure. Follow-up in my office within 1 week. Subjective Date of service: 09/28/19 Interval history: Patient is comfortable, no chest pain or shortness of breath. His anticipated discharge yesterday was held due to the finding of low blood pressure. As a consequence, his JULIEN inhibitor and beta-aysha were held and dose is reduced. This morning, his systolic blood pressure is 117. Objective Vital Signs Temp Pulse Pulse Pulse Pulse Pulse Resp 09/28/19 07:58 09/28/19 07:09 20 09/28/19 04:56 98.0 F 65 18 09/27/19 23:33 18 09/27/19 23:24 98.0 F 72 18 09/27/19 22:33 18 09/27/19 22:26 56 L 09/27/19 22:00 20 09/27/19 20:51 09/27/19 20:50 67 09/27/19 20:04 98.0 F 56 L 18 09/27/19 20:00 72 09/27/19 15:25 97.9 F 65 18 09/27/19 14:30 77 09/27/19 12:04 50 L 74 67 09/27/19 11:31 97.9 F 95 H 18 09/27/19 11:27 97.9 F 81 18 Resp BP BP BP BP Pulse Ox 09/28/19 07:58 98 09/28/19 07:09 09/28/19 04:56 118/70 98 09/27/19 23:33 09/27/19 23:24 107/74 97 09/27/19 22:33 09/27/19 22:26 105/68 09/27/19 22:00 100 09/27/19 20:51 99 09/27/19 20:50 18 09/27/19 20:04 105/68 98 09/27/19 20:00 09/27/19 15:25 96/53 100 09/27/19 14:30 18 09/27/19 12:04 81/51 87/49 75/50 09/27/19 11:31 75/50 92 09/27/19 11:27 87/49 95 - Physical Examination General: Appears Well, No Apparent Distress HEENT: Positive: PERRL Neck: Positive: trachea midline Cardiac: Positive: Reg Rate and Rhythm Lungs: Positive: Decreased Breath Sounds Neuro: Positive: Grossly Intact Abdomen: Positive: Soft Skin: Positive: Clear Extremities: Absent: edema
[2019-09-28] MEDS: TICAGRELOR 90 MG TAB PO SCH (11:07)
[2019-09-28] MEDS: ASPIRIN 325 MG TAB PO SCH (11:07)
[2019-09-28] MEDS: METOPROLOL TARTRATE 25 MG TAB PO SCH (11:08)
--- NOTE | 2019-09-28 11:22 | Discharge Summary ---
Providers - Providers Date of Admission: 09/25/19 15:06 Date of discharge: 09/28/19 Attending physician: SERGIO GUZMAN 09/25/19 13:25 Consult to Physician [CONS] Urgent Comment: Consulting Provider: OSITO ZULUAGA Physician Instructions: Reason For Exam: cp ekg changes 09/26/19 Consult to Cardiac Rehabilitation [CONS] Routine Reason For Exam: post pci Hospitalization Condition: Serious Pertinent studies: Chest x-ray, cardiac cath Hospital course: 73-year-old male with a history of nicotine dependence, COPD, hypertension, ma lnutrition presented to the ER with complaints of chest pain. His cardiac enzymes in the ER was normal, he had a recent hospitalization and a stress test that time did not show any reversible ischemia. EKG showed prominent T waves, cardiology was consulted and and patient was placed on heparin drip. Status post cardiac cath on 09/26/19 with PCI to proximal LAD. Patient was placed on dual antiplatelet therapy with aspirin and Brilinta along with how to use statin beta-aysha and ACEI. He also noted to have ejection fraction of 20 to 25% on cardiac cath, but he appears to be compensated. Cardiology recommended to continue current medications and further follow-up as an outpatient. During this hospitalization patient was briefly noted to be hypotensive which is thought to be medication induced, his antihypertensives medications were adjusted blood pressure was stabilized and he was discharged home in stable condition with outpatient follow-up. Discharge diagnosis and Mx: Unstable angina due to coronary artery disease - s/p Cardiac cath completed with successful PCI of prox LAD 09/26/19 - s/p heparin drip, now placed on aspirin, Brilinta, high-dose statin, beta- aysha and ACEI Diabetes mellitus type 2, continue consistent carb diet and home meds Hypertension, - placed on low dose BB, ACEI. Hypertension, likely medication induced, resolved -Stopped isosorbide and reduced dose for beta-aysha and ACEI New diagnosis of systolic CHFrEf 20-25% -Managed with strict ins/os, along with low-dose BB and ACEI - patient appear compensated, will follow up with cardiology as outpatient Tobacco abuse, counseled for abstinence COPD, without exacerbation, nebs as needed Mild malnutrition, supplemental nutrients ordered DVT prophylaxis, Lovenox Physical exam: GENERAL: well-developed elderly -[place] male lying on bed appeared to be in no discomfort. HEENT: Normocephalic. Atraumatic. No conjunctival congestion or icterus. Patient has moist mucous membranes. NECK: Supple. Trachea midline. CHEST/LUNGS: Clear to auscultated bilaterally, breathing nonlabored. No wheezes crackles or rhonchi. HEART/CARDIOVASCULAR: Regular in rate and rhythm. S1 and S2 positive. ABDOMEN: Abdomen is soft, nontender. Patient has normal bowel sounds. SKIN: There is no rash. Warm and dry. NEURO: No focal motor deficit. Follows command. MUSCULOSKELETAL: No joint effusion or tenderness. EXTRIMITY: No edema, no cyanosis or clubbing. PSYCH: Cooperative. Disposition: DC-01 TO HOME OR SELFCARE Time spent for discharge: 34 minutes Core Measure Documentation - Palliative Care Palliative Care/ Comfort Measures: Not Applicable - Core Measures Any of the following diagnoses?: acute [place], heart failure - Acute [place] Discharge Requirements Aspirin at discharge: Yes JULIEN/ARB for LVSD if EF <40%: Yes Beta aysha at discharge: Yes Statin for LDL = or >100 mg/dl on DC: Yes - Heart Failure Discharge Requirements JULIEN/ARB for LVSD if EF <40%: Yes Beta aysha at discharge: Yes Exam - Constitutional Vitals: Temp Pulse Resp BP Pulse Ox 98.0 F 65 20 118/70 98 09/28/19 04:56 09/28/19 04:56 09/28/19 07:09 09/28/19 04:56 09/28/19 07:58 Plan Activity: fall precautions Weight Bearing Status: Non-Weight Bearing Diet: low fat, low salt, diabetic Special Instructions: restrict fluid intake to (1.2L daily ), record daily BP diary, record blood sugar diary Follow up with: MIGUEL LICONA [Other] - 3-5 Days OSITO ZULUAGA MD [Staff Physician] - 7 Days Prescriptions: AtorvaSTATin [Lipitor] 40 mg PO QHS #30 tablet Aspirin 81 mg PO QDAY #30 tablet Ticagrelor [Brilinta] 90 mg PO BID #60 tablet Metoprolol [Lopressor TAB] 12.5 mg PO BID #60 tablet lisinopriL [Zestril TAB] 2.5 mg PO QDAY #30 tablet
[2019-09-28 17:16] VITALS: BP 122/71
== END 2019-09-28 18:06 | disposition home or self-care (01) | DRG 246 ==
LOC: ED 13:09 → 4A 15:06
PROVIDERS: ADMIT Internal Medicine; ATTEND Internal Medicine
PROC: 027034Z Dilation of Coronary Artery, One Artery with Drug-eluting Intraluminal Device, Percutaneous Approach (ICD-10-PCS; principal; 2019-09-26)
PROC: 4A023N7 Measurement of Cardiac Sampling and Pressure, Left Heart, Percutaneous Approach (ICD-10-PCS; 2019-09-26)
PROC: B2111ZZ Fluoroscopy of Multiple Coronary Arteries using Low Osmolar Contrast (ICD-10-PCS; 2019-09-26)
PROC: B2151ZZ Fluoroscopy of Left Heart using Low Osmolar Contrast (ICD-10-PCS; 2019-09-26)
DX: I25.110 Atherosclerotic heart disease of native coronary artery with unstable angina pectoris (principal); I50.41 Acute combined systolic (congestive) and diastolic (congestive) heart failure; E44.0 Moderate protein-calorie malnutrition; Z68.1 Body mass index [BMI] 19.9 or less, adult; F17.213 Nicotine dependence, cigarettes, with withdrawal; I11.0 Hypertensive heart disease with heart failure; E11.9 Type 2 diabetes mellitus without complications; I25.5 Ischemic cardiomyopathy; J43.9 Emphysema, unspecified; Z71.6 Tobacco abuse counseling; Z82.49 Family history of ischemic heart disease and other diseases of the circulatory system; Z83.3 Family history of diabetes mellitus
CPT/HCPCS: 36415; 71045; 80048; 82550; 82553; 82962; 83735; 84484; 85025; 85347; 85520; 85610; 85730; 92928; 93005; 93458; 94640; 94760; 99406; G0378; A9270-GY; C1725; C1760; C1769; C1874; C1887; C1894; C9600; J1644; J1650; J1885; J2250; J3010; J7040; Q9967

== ENCOUNTER 2021-11-05 17:48 | Emergency (ER) | payer MEDICARE ==
[2021-11-05 17:54] VITALS: BP 144/93
[2021-11-05] MEDS ORDERED: ASPIRIN 325 MG TAB PO ONE (17:54)
--- NOTE | 2021-11-05 18:36 | XRay Report ---
CHEST 2 VIEWS INDICATION / CLINICAL INFORMATION: chest pain. COMPARISON: 04/23/2021 FINDINGS: SUPPORT DEVICES: None. HEART / MEDIASTINUM: No significant abnormality. LUNGS / PLEURA: Advanced COPD/emphysema, unchanged No significant pulmonary or pleural abnormality. N o pneumothorax. ADDITIONAL FINDINGS: No significant additional findings. IMPRESSION: 1. No acute findings. 2. Chronic advanced COPD/emphysema Signer Name: Mansoor Vora MD Signed: 11/05/2021 6:32 PM Workstation Name: [id number]
[2021-11-05 19:30] LABS: Basophils # (Auto) 0.5 K/mm3 (0.0-0.1); Basophils % (Auto) 2.6 % (0.0-1.8); Eosinophils # (Auto) 0.1 K/mm3 (0.0-0.4); Eosinophils % (Auto) 0.6 % (0.0-4.3); Hematocrit 49.2 % (35.5-45.6); Hemoglobin 15.5 gm/dl (11.8-15.2); Lymphocytes # (Auto) 0.5 K/mm3 (1.2-5.4); Lymphocytes % (Auto) 2.6 % (13.4-35.0); Mean Corpuscular HGB Conc 32 % (32-34); Mean Corpuscular Volume 86 fl (84-94); Monocytes # (Auto) 1.4 K/mm3 (0.0-0.8); Monocytes % (Auto) 7.7 % (0.0-7.3); Platelet Count 207 K/mm3 (140-440); Red Cell Distribution Width 14.1 % (13.2-15.2)
[2021-11-05 19:45] LABS: Alanine Aminotransferase 23 units/L (7-56); Blood Urea Nitrogen 9 mg/dL (9-20); Calcium 9.2 mg/dL (8.4-10.2); Hemolysis Index 7
[2021-11-05 19:51] LABS: BUN/Creatinine Ratio 15
--- NOTE | 2021-11-07 10:01 | Electrocardiograph Report ---
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
== END 2021-11-06 03:50 | disposition home or self-care (01) ==
LOC: ED 17:48
DX: R06.02 Shortness of breath (principal); Z53.21 Procedure and treatment not carried out due to patient leaving prior to being seen by health care provider
CPT/HCPCS: 36415; 71046; 80053; 84484; 85025; 93005

== ENCOUNTER 2021-11-08 19:52 | Emergency (ER) | payer SELFPAY ==
[2021-11-08 22:16] VITALS: BP 129/95
--- NOTE | 2021-11-08 22:59 | XRay Report ---
CHEST 2 VIEWS INDICATION / CLINICAL INFORMATION: Chest Pain. COMPARISON: Chest x-ray 11/05/2021; chest x-ray 05/18/2018 FINDINGS: SUPPORT DEVICES: None. HEART / MEDIASTINUM: Heart size and mediastinal contour appear within normal limits. LUNGS / PLEURA: Emphysematous changes are suggested, stable. No superimposed airspace opacities or ac [place] pathology suggested. No pneumothorax. Small calcified nodules mid and lower right lung are stable dating back to 2019. BONES: No significant osseous abnormality. ADDITIONAL FINDINGS: No significant additional findings. IMPRESSION: 1. Stable appearance of emphysematous chest. No superimposed acute pathology. Signer Name: Gal Garcia II, MD Signed: 11/08/2021 10:54 PM Workstation Name: [id number]
[2021-11-08 23:19] LABS: Basophils # (Auto) 0.1 K/mm3 (0.0-0.1); Basophils % (Auto) 0.5 % (0.0-1.8); Eosinophils # (Auto) 0.2 K/mm3 (0.0-0.4); Eosinophils % (Auto) 1.2 % (0.0-4.3); Hematocrit 47.3 % (35.5-45.6); Hemoglobin 15.2 gm/dl (11.8-15.2); Lymphocytes # (Auto) 0.9 K/mm3 (1.2-5.4); Mean Corpuscular HGB Conc 32 % (32-34); Mean Corpuscular Volume 86 fl (84-94); Monocytes # (Auto) 1.9 K/mm3 (0.0-0.8); Monocytes % (Auto) 11.1 % (0.0-7.3); Platelet Count 283 K/mm3 (140-440); Red Blood Count 5.51 M/mm3 (3.65-5.03)
[2021-11-09 00:50] LABS: Alanine Aminotransferase 25 units/L (7-56); Albumin 3.8 g/dL (3.9-5); BUN/Creatinine Ratio 10; Blood Urea Nitrogen 8 mg/dL (9-20); Calcium 9.6 mg/dL (8.4-10.2); Hemolysis Index 64
--- NOTE | 2021-11-10 10:05 | Electrocardiograph Report ---
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
== END 2021-11-08 23:00 | disposition left against medical advice (07) ==
LOC: ED 19:52
DX: R07.9 Chest pain, unspecified (principal); Z53.21 Procedure and treatment not carried out due to patient leaving prior to being seen by health care provider
CPT/HCPCS: 36415; 71046; 80053; 84484; 85025; 93005